=== PATIENT | female | born 1940 | race Caucasian/White ===

== ENCOUNTER 2017-02-09 01:48 | Emergency (ER) | payer MEDICARE ==
[~2017-02-09] VITALS: Ht 167.6 cm; Wt 81.8 kg
[2017-02-09 01:55] VITALS: BP 147/77; PULSE 58; RESP 16; O2SAT 98
--- NOTE | 2017-02-09 03:02 | ED.REPORT ---
HPI-Abd Pain F 40 and Over Date of Service Feb 09, 2017 ED Provider: Jensen Santiago MD Patient is a 76 year old female with a history of frequent UTIs, microscopic colitis, and hypertension who presents to the ED after she developed hematuria and dysuria this morning. She reports 2x episodes of hematuria, followed by a third episode of urination which was painful. The patient states that this is what she typically experiences with a UTI. The patient takes cranberry supplements, which has been helpful in decreasing the number of UTIs she has. Patient denies nausea, flank pain, or abdominal pain. Nursing Notes Stated Complaint: BLOOD IN URINE Chief Complaint: Female Abdominal Pain Nursing Notes Reviewed: Yes Allergies: Coded Allergies: Sulfa (Sulfonamide Antibiotics) (Verified Allergy, Unknown, 02/09/17) codeine (Verified Allergy, Unknown, 02/09/17) General Time Seen by MD: 03:00 Chief Complaint Dysuria, Other (hematuria) Hx Obtained From: Patient Arrived By: Walk-in Sudden in Onset?: No Onset Occurred: 1 - 4 hours ago Symptom Duration: Intermittent Severity: Current: No pain currently Severity: Maximum: No pain Recent Healthcare: No recent doctor visit, No recent hospitalization Similar Sx Previous: Yes Past Medical History Past Medical History microscopic colitis frequent UTIs Reports: Hypertension Past Surgical History none reported Smoking History Unknown if Ever Smoker Social History Other Social History: Good social support, Local resident Ambulatory Status Independent Review of Systems GI: Denies: Abdominal pain, Nausea Female: Reports: Dysuria, Hematuria, Denies: Flank pain Musculoskeletal: Denies: Back pain Complete sys rev & neg: except as marked. Physical Exam Vital Signs Vital Signs (First) Date Time Temp Pulse Resp B/P Pulse Ox O2 Delivery O2 Flow Rate FiO2 02/09/17 01:55 36.9 58 16 147/77 98 Room Air Initial VS: Reviewed, Vital signs normal Head / Eyes: Atraumatic, Normocephalic, PERRL ENT: Conjunctiva normal, No scleral icterus Neck: Supple, Full range of motion Skin: Warm, Dry, No cyanosis Neurologic: Alert, Oriented, Nonfocal Psychiatric: Mood/affect normal, Behavior normal, Normal thought content General/Constitutional: Awake, Alert, No acute distress Respiratory / Chest: No respiratory distress, No stridor Cardiovascular: Heart rate NL, Regular rhythm Abdomen: Soft, Non-tender full bladder sensation with abdominal palpation Back: Non-tender, No CVA tenderness Interpretation & Diagnostics Lab Results Interpretation Test 02/09/17 02:55 Urine Color Red (YELLOW) Urine Appearance Cloudy (CLEAR,HAZY) Urine pH 6.0 (5.0-8.0) Urine Specific [place] 1.010 (1.003-1.035) Urine Protein 100mg/dL (NEG,TRACE) Urine Glucose (UA) Negativemg/dL (NEGATIVE) Urine Ketones Negativemg/dL (NEGATIVE) Urine Occult Blood Large (NEGATIVE) Urine Nitrite Negative (NEGATIVE) Urine Bilirubin Negative (NEGATIVE) Urine Urobilinogen Normalmg/dL (NORMAL) Urine Leukocyte Esterase Moderate (NEGATIVE) Urine RBC >50/hpf (0-2) Urine WBC 11-50/hpf (0-5) Urine Epithelial Cells Moderate/hpf (NONE-MOD) Urine Crystals None seen (NONE SEEN) Urine Bacteria Moderate/hpf (NONE-FEW) Urine Hyaline Casts None/lpf (NONE) Urine Granular Casts None seen (NONE SEEN) Urine Waxy Casts None seen (NONE SEEN) Urine Red Blood Cell Casts None seen (NONE SEEN) Urine White Blood Cell Casts None seen (NONE SEEN) Urine Mucus None seen (None Seen) Urine Trichomonas None seen (NONE SEEN) Urine Yeast None (NONE SEEN) Urine Culture Reflexed Indicated Hold Urine Received (Received) Re-Eval/Medical Decision Med Decision/Clinical Course 76-year-old with an uncomplicated hemorrhagic cystitis. Source of Hx: Old records Re-Evaluation/Progress : Time of Eval: 03:14 Patient Status: Condition improved Re-Evaluation/Progress Note: Patient will be treated for a UTI. Patient understands and agrees with the plan to be discharged home. Discharge instructions and follow-up discussed. All questions were addressed. Return to the ED warnings given. Counseled Regarding: Diagnosis, Lab results, Need for follow-up, When/why to return to ED Discharge & Departure Primary Impression: UTI (urinary tract infection) Urinary tract infection type: acute cystitis Hematuria presence: with hematuria Qualified Code: N30.01 - Acute cystitis with hematuria Additional Impression: Hematuria Disposition: Home Discharge Condition All VS Reviewed: Yes Condition: Stable Patient Instructions: Urinary Tract Infection in Women (ED) Additional Instructions: You have hemorrhagic cystitis, bladder infection which causes the bladder to bleed. This is treated with antibiotics. Nitrofurantoin (Macrobid) 100 mg by mouth twice a day, #20 dispensed. Drink plenty of fluids. Cranberry juice or cranberry pills. Follow-up with your regular doctor in the next couple days if you get worse to check the urine culture to make sure this antibiotic works. Otherwise, follow-up with your doctor after the antibiotics are gone to make sure the infection is gone. Referrals: Gurvinder Herrera MD (PCP) [place] Attestation Portions of this note were transcribed by Nelly Mei. I, Dr. Santiago personally performed the history, physical exam and medical decision-making; I reviewed and confirmed the accuracy of the information in the transcribed note. Signed by: Christopher Bah, 02/09/2017 0318 copies to: Gurvinder Herrera MD, Howard L MD Feb 09, 2017 03:01 Nelly Mei Feb 09, 2017 03:08
[2017-02-09 03:44] LABS: APPEARANCE,URINE CLOUDY (CLEAR,HAZY); COLOR,URINE RED (YELLOW); OCCULT BLOOD,URINE LARGE (NEGATIVE); UROBILINOGEN,URINE NORMAL (NORMAL)
[2017-02-09] MEDS ORDERED: _Nitrofurantoin Macrocrystal 100 mg Capsule PO SCH (08:30)
[2017-02-11] MEDS ORDERED: CEPH500C PO (10:12)
== END 2017-02-09 03:39 | disposition home or self-care (01) ==
LOC: SED 01:48
DX: N30.01 Acute cystitis with hematuria (principal); B96.1 Klebsiella pneumoniae [K. pneumoniae] as the cause of diseases classified elsewhere; I10 Essential (primary) hypertension; Z88.2 Allergy status to sulfonamides; Z88.5 Allergy status to narcotic agent